=== PATIENT | female | born 1925 | race Caucasian/White ===

== ENCOUNTER → 2016-10-28 | Outpatient (REF) | payer MEDICARE, OTHER ==
[~2016-10-28] MED LIST: /ONDA4TA OR; ACET65TA OR; ARIC10TA OR; ASPI81TA83 OR; ATIV0.5T OR; CRANBERRY TABS PO; MILKSUS OR; MIRALEX PO; OXYC5CAP4 OR; PAXI10TA OR; REME30TA OR; SENO8.6T5 OR; SORBITOL; VITAMIN B12 IM; XANA0.25 OR; ZANT150T OR; fleet enema PR; marinol PO; morphine sulfate PO
[2016-10-28 14:25] LABS: CALCIUM OXALATE CRYSTALS SMALL
== END ==
LOC: SKLAB6 13:45
DX: R50.9 Fever, unspecified (principal)